=== PATIENT | female | born 1985 | race Caucasian/White ===

== ENCOUNTER 2016-11-21 01:15 | Inpatient (IN) | payer OTHER ==
[2016-11-21 02:28] LABS: Basophils % (Auto) 0.6 % (0.0-1.8); Eosinophils % (Auto) 1.4 % (0.0-4.3); Hematocrit 35.8 % (30.3-42.9); Hemoglobin 12.3 gm/dl (10.1-14.3); Mean Corpuscular HGB Conc 34 % (30-34); Mean Corpuscular Hemoglobin 32 pg (28-32); Mean Corpuscular Volume 93 fl (79-97); Platelet Count 190 K/mm3 (140-440); Red Blood Count 3.85 M/mm3 (3.65-5.03); Red Cell Distribution Width 13.7 % (13.2-15.2)
[2016-11-21] MEDS ORDERED: XYLOCAINE 2% INFILTRATI ONE (02:56)
[2016-11-21] MEDS ORDERED: BRETHINE IVP PRN ×2 (02:56→06:19)
[2016-11-21] MEDS ORDERED: ePHEDrine SULFATE IV PRN ×2 (02:56→06:19)
[2016-11-21] MEDS ORDERED: BRETHINE SUB-Q PRN ×2 (02:56→06:19)
[2016-11-21] MEDS ORDERED: MINERAL OIL PO PRN (02:56)
[2016-11-21] MEDS ORDERED: PITOCin/NS 20 UNIT/1000ML DRIP 20 UNITS/1,000 ML BAG IV SCH (03:00)
[2016-11-21] MEDS: LACTATED RINGERS 1,000 ML IV SCH ×2 (03:54→15:05)
--- NOTE | 2016-11-21 06:11 | History and Physical Report ---
History of Present Illness Date of examination: 11/21/16 Date of admission: 11/21/16 03:14 Chief complaint: Ruptured membranes at midnight History of present illness: 31-year-old 001 at 39+1 weeks presents with above complaints and issues, she is a [facility] patient. care has been unremarkable per patient. I do not have records at this time so patient GBS status is unknown She is status post growth scan ~ 2 weeks ago for S<D, 6 lbs. 4 oz. Her prior was in [facility] in 2007. This was performed for arrest of descent and dilation after rupture of membranes. Maximum dilation was ~ 4 cm and she was in labor for 16 hours. Discussed in detail including the risks, discussed low chance of success due to her prior history. 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 denies: smoking, alcohol abuse, prescription drug abuse, IV drug use - Obstetrical History Expected Date of Delivery: 11/27/16 Actual Gestation: 39 Week(s) 1 Day(s) : 2 Para: 1 Number of Living Children: 1 Medications and Allergies Allergies Allergy/AdvReac Type Severity Reaction Status Date / Time No Known Allergies Allergy Verified 11/21/16 02:59 Active Meds: Active Medications Lactated Ringer's (Lactated Ringers) 1,000 mls @ 125 mls/hr IV DIRECT ALKA Last Admin: 11/21/16 03:54 Dose: 125 mls/hr Oxytocin/Sodium Chloride (Pitocin/Ns 20 Unit/1000ml Drip) 20 units in 1,000 mls @ 125 mls/hr IV DIRECT ALKA Mineral Oil (Mineral Oil) 30 ml PO QHS PRN PRN Reason: Constipation Review of Systems Constitutional: no fever, no chills, no sweats Cardiovascular: no chest pain, no palpitations, no lightheadedness Respiratory: no cough, no shortness of breath, no dyspnea on exertion Gastrointestinal: no abdominal pain, no nausea, no vomiting Genitourinary: leakage of fluid, no vaginal bleeding, no vaginal discharge - Vital Signs Vital signs: Vital Signs Pulse Pulse Ox 307 H 82 L 11/21/16 01:37 11/21/16 01:37 Temp Pulse Resp BP Pulse Ox 98.0 F 80 18 99/55 99 11/21/16 01:40 11/21/16 06:03 11/21/16 01:40 11/21/16 03:32 11/21/16 06:03 - Physical Exam Cardiovascular: Regular rate, Normal S1, Normal S2 Lungs: Positive: Clear to auscultation, Normal air movement Abdomen: Positive: normal appearance, soft. Negative: distention, tenderness, guarding, rigidity Genitourinary (Female): Positive: normal external genitalia Uterus: Positive: enlarged (EFW ~ 3200). Negative: tender Extremities: Positive: normal - Obstetrical FHR: category 1 Cervical Dilatation: 1 (per RN exam) station: -3 Results Result Diagrams: 11/21/16 02:00 All other labs normal. Assessment and Plan A: 31-year-old 001 at 39+1 weeks presented with rupture of membranes -She is status post prior desires TOLAC -Category 1 tracing P: -Admit -Routine labs -Start GBS prophylaxis -Start Low dose Pit -Patient and her partner have been consented for - Patient Problems (1) 39 weeks gestation of Current Visit: Yes Status: Acute (2) Spontaneous rupture of amniotic membranes Current Visit: Yes Status: Acute (3) Previous delivery affecting Current Visit: Yes Status: Acute (4) Desires (vaginal after ) trial Current Visit: Yes Status: Acute
[2016-11-21] MEDS ORDERED: POLYCILLIN/NS 2 GM/100 ML 2 GM/100 ML BAG IV ONE (06:19)
[2016-11-21] MEDS ORDERED: ZOFRAN IV PRN (06:19)
[2016-11-21] MEDS ORDERED: PITOCin/NS 30 UNIT/500ML 30 UNITS/500 ML BAG IV SCH (07:00)
[2016-11-21] MEDS: PITOCin/NS 30 UNIT/500ML 30 UNITS/500 ML BAG IV SCH ×5 (07:36→17:43)
--- NOTE | 2016-11-21 10:14 | Ultrasound Report ---
Gestation: Single Position: Cephalic Heart Rate: 129 BPM Average gestational age 39 weeks and one day.
[2016-11-21] MEDS: POLYCILLIN/NS 1 GM/50 ML 1 GM/50 ML BAG IV SCH ×3 (15:06→23:00)
[2016-11-22] MEDS: LACTATED RINGERS 1,000 ML IV SCH ×3 (01:29→09:27)
[2016-11-22] MEDS: SUBLIMAZE IV PRN ×2 (01:30→04:29)
[2016-11-22] MEDS: POLYCILLIN/NS 1 GM/50 ML 1 GM/50 ML BAG IV SCH ×3 (03:00→11:24)
--- NOTE | 2016-11-22 07:00 | Progress Note ---
Assessment and Plan A: 31-year-old 001 at 39+1 weeks presented with rupture of membranes -She is status post prior desires TOLAC -Category 1 tracing P: -IUPC placed -Epidural now -Continue present care - Patient Problems (1) 39 weeks gestation of Current Visit: Yes Status: Acute (2) Spontaneous rupture of amniotic membranes Current Visit: Yes Status: Acute (3) Previous delivery affecting Current Visit: Yes Status: Acute (4) Desires (vaginal after ) trial Current Visit: Yes Status: Acute Subjective - Subjective Date of service: 11/22/16 Interval history: patient is Patient reports: vaginal bleeding (bloody show), movement normal, contractions, no new complaints Objective - Vital Signs Vital Signs: Vital Signs - 12hr 11/21/16 11/21/16 11/21/16 19:00 19:05 19:06 Temperature Pulse Rate 68 71 62 Pulse Rate [ From Monitor] Respiratory Rate Blood Pressure 102/68 Blood Pressure [Left Arm] O2 Sat by Pulse 99 100 Oximetry 11/21/16 11/21/16 11/21/16 19:07 19:10 19:15 Temperature 98.2 F Pulse Rate 69 71 Pulse Rate [ 71 From Monitor] Respiratory 18 Rate Blood Pressure Blood Pressure 102/68 [Left Arm] O2 Sat by Pulse 100 100 99 Oximetry 11/21/16 11/21/16 11/21/16 19:20 19:28 19:29 Temperature Pulse Rate 62 66 77 Pulse Rate [ From Monitor] Respiratory Rate Blood Pressure 104/70 Blood Pressure [Left Arm] O2 Sat by Pulse 100 100 Oximetry 11/21/16 11/21/16 11/21/16 19:33 19:38 19:43 Temperature Pulse Rate 71 71 68 Pulse Rate [ From Monitor] Respiratory Rate Blood Pressure Blood Pressure [Left Arm] O2 Sat by Pulse 99 98 97 Oximetry 11/21/16 11/21/16 11/21/16 19:47 19:48 19:53 Temperature Pulse Rate 62 75 74 Pulse Rate [ From Monitor] Respiratory Rate Blood Pressure 102/60 Blood Pressure [Left Arm] O2 Sat by Pulse 98 98 Oximetry 11/21/16 11/21/16 11/21/16 19:58 20:03 20:06 Temperature Pulse Rate 66 74 62 Pulse Rate [ From Monitor] Respiratory Rate Blood Pressure 101/69 Blood Pressure [Left Arm] O2 Sat by Pulse 98 97 Oximetry 11/21/16 11/21/16 11/21/16 20:08 20:15 20:20 Temperature Pulse Rate 63 78 74 Pulse Rate [ From Monitor] Respiratory Rate Blood Pressure Blood Pressure [Left Arm] O2 Sat by Pulse 97 97 98 Oximetry 11/21/16 11/21/16 11/21/16 20:25 20:27 20:30 Temperature Pulse Rate 71 75 77 Pulse Rate [ From Monitor] Respiratory Rate Blood Pressure 114/75 Blood Pressure [Left Arm] O2 Sat by Pulse 98 98 Oximetry 11/21/16 11/21/16 11/21/16 20:35 20:40 20:47 Temperature Pulse Rate 65 82 74 Pulse Rate [ From Monitor] Respiratory Rate Blood Pressure Blood Pressure [Left Arm] O2 Sat by Pulse 97 97 99 Oximetry 11/21/16 11/21/16 11/21/16 20:52 20:57 21:02 Temperature Pulse Rate 81 70 64 Pulse Rate [ From Monitor] Respiratory Rate Blood Pressure Blood Pressure [Left Arm] O2 Sat by Pulse 98 98 99 Oximetry 11/21/16 11/21/16 11/21/16 21:07 21:12 21:17 Temperature Pulse Rate 63 72 57 L Pulse Rate [ From Monitor] Respiratory Rate Blood Pressure 106/67 Blood Pressure [Left Arm] O2 Sat by Pulse 98 98 99 Oximetry 11/21/16 11/21/16 11/21/16 21:22 21:26 21:27 Temperature Pulse Rate 63 68 62 Pulse Rate [ From Monitor] Respiratory Rate Blood Pressure 121/81 Blood Pressure [Left Arm] O2 Sat by Pulse 99 99 Oximetry 11/21/16 11/21/16 11/21/16 21:32 21:37 21:43 Temperature Pulse Rate 63 69 74 Pulse Rate [ From Monitor] Respiratory Rate Blood Pressure Blood Pressure [Left Arm] O2 Sat by Pulse 100 99 100 Oximetry 11/21/16 11/21/16 11/21/16 21:48 21:53 21:58 Temperature Pulse Rate 72 78 70 Pulse Rate [ From Monitor] Respiratory Rate Blood Pressure Blood Pressure [Left Arm] O2 Sat by Pulse 100 100 100 Oximetry 11/21/16 11/21/16 11/21/16 22:00 22:03 22:07 Temperature Pulse Rate 71 67 69 Pulse Rate [ From Monitor] Respiratory Rate Blood Pressure 120/76 102/64 Blood Pressure [Left Arm] O2 Sat by Pulse 100 Oximetry 11/21/16 11/21/16 11/21/16 22:08 22:22 22:27 Temperature Pulse Rate 68 68 68 Pulse Rate [ From Monitor] Respiratory Rate Blood Pressure 114/72 Blood Pressure [Left Arm] O2 Sat by Pulse 100 98 98 Oximetry 11/21/16 11/21/16 11/21/16 22:32 22:37 22:45 Temperature Pulse Rate 75 74 77 Pulse Rate [ From Monitor] Respiratory Rate Blood Pressure Blood Pressure [Left Arm] O2 Sat by Pulse 99 100 100 Oximetry 11/21/16 11/21/16 11/21/16 22:47 22:50 22:55 Temperature Pulse Rate 71 76 75 Pulse Rate [ From Monitor] Respiratory Rate Blood Pressure 115/72 Blood Pressure [Left Arm] O2 Sat by Pulse 100 99 Oximetry 11/21/16 11/21/16 11/21/16 23:00 23:05 23:14 Temperature Pulse Rate 63 70 59 L Pulse Rate [ From Monitor] Respiratory Rate Blood Pressure Blood Pressure [Left Arm] O2 Sat by Pulse 100 100 98 Oximetry 11/21/16 11/21/16 11/21/16 23:19 23:24 23:27 Temperature Pulse Rate 66 72 72 Pulse Rate [ From Monitor] Respiratory Rate Blood Pressure 121/85 Blood Pressure [Left Arm] O2 Sat by Pulse 99 99 Oximetry 11/21/16 11/21/16 11/21/16 23:29 23:34 23:39 Temperature Pulse Rate 72 75 61 Pulse Rate [ From Monitor] Respiratory Rate Blood Pressure Blood Pressure [Left Arm] O2 Sat by Pulse 99 99 98 Oximetry 11/21/16 11/21/16 11/21/16 23:44 23:53 23:58 Temperature Pulse Rate 80 68 71 Pulse Rate [ From Monitor] Respiratory Rate Blood Pressure Blood Pressure [Left Arm] O2 Sat by Pulse 98 99 99 Oximetry 11/22/16 11/22/16 11/22/16 00:03 00:07 00:08 Temperature Pulse Rate 67 67 67 Pulse Rate [ From Monitor] Respiratory Rate Blood Pressure 104/60 Blood Pressure [Left Arm] O2 Sat by Pulse 99 98 Oximetry 11/22/16 11/22/16 11/22/16 00:13 00:18 00:23 Temperature Pulse Rate 68 75 72 Pulse Rate [ From Monitor] Respiratory Rate Blood Pressure Blood Pressure [Left Arm] O2 Sat by Pulse 99 100 100 Oximetry 11/22/16 11/22/16 11/22/16 00:27 00:28 00:36 Temperature Pulse Rate 68 65 69 Pulse Rate [ From Monitor] Respiratory Rate Blood Pressure 124/79 Blood Pressure [Left Arm] O2 Sat by Pulse 98 99 Oximetry 11/22/16 11/22/16 11/22/16 00:41 00:46 00:51 Temperature Pulse Rate 66 71 61 Pulse Rate [ From Monitor] Respiratory Rate Blood Pressure 117/75 Blood Pressure [Left Arm] O2 Sat by Pulse 99 99 99 Oximetry 11/22/16 11/22/16 11/22/16 00:56 01:01 01:06 Temperature Pulse Rate 67 73 61 Pulse Rate [ From Monitor] Respiratory Rate Blood Pressure Blood Pressure [Left Arm] O2 Sat by Pulse 98 99 98 Oximetry 11/22/16 11/22/16 11/22/16 01:15 01:20 01:25 Temperature Pulse Rate 74 75 71 Pulse Rate [ From Monitor] Respiratory Rate Blood Pressure Blood Pressure [Left Arm] O2 Sat by Pulse 98 99 97 Oximetry 11/22/16 11/22/16 11/22/16 01:26 01:30 01:35 Temperature Pulse Rate 72 78 74 Pulse Rate [ From Monitor] Respiratory 18 Rate Blood Pressure 120/74 Blood Pressure [Left Arm] O2 Sat by Pulse 99 99 Oximetry 11/22/16 11/22/16 11/22/16 01:40 01:43 01:45 Temperature Pulse Rate 70 70 72 Pulse Rate [ From Monitor] Respiratory Rate Blood Pressure Blood Pressure [Left Arm] O2 Sat by Pulse 97 94 97 Oximetry 11/22/16 11/22/16 11/22/16 01:49 01:50 01:51 Temperature 98.6 F Pulse Rate 71 71 Pulse Rate [ From Monitor] Respiratory Rate Blood Pressure 93/51 Blood Pressure [Left Arm] O2 Sat by Pulse 96 Oximetry 11/22/16 11/22/16 11/22/16 01:55 02:00 02:05 Temperature Pulse Rate 71 69 70 Pulse Rate [ From Monitor] Respiratory Rate Blood Pressure Blood Pressure [Left Arm] O2 Sat by Pulse 97 97 97 Oximetry 11/22/16 11/22/16 11/22/16 02:08 02:10 02:15 Temperature Pulse Rate 70 69 67 Pulse Rate [ From Monitor] Respiratory Rate Blood Pressure 81/53 Blood Pressure [Left Arm] O2 Sat by Pulse 97 97 Oximetry 11/22/16 11/22/16 11/22/16 02:20 02:28 02:33 Temperature Pulse Rate 63 76 63 Pulse Rate [ From Monitor] Respiratory Rate Blood Pressure Blood Pressure [Left Arm] O2 Sat by Pulse 98 97 99 Oximetry 11/22/16 11/22/16 11/22/16 02:38 02:43 02:47 Temperature Pulse Rate 71 66 67 Pulse Rate [ From Monitor] Respiratory Rate Blood Pressure 110/61 Blood Pressure [Left Arm] O2 Sat by Pulse 98 97 Oximetry 11/22/16 11/22/16 11/22/16 02:48 02:53 02:58 Temperature Pulse Rate 66 64 67 Pulse Rate [ From Monitor] Respiratory Rate Blood Pressure Blood Pressure [Left Arm] O2 Sat by Pulse 98 98 97 Oximetry 11/22/16 11/22/16 11/22/16 03:03 03:12 03:17 Temperature Pulse Rate 78 66 65 Pulse Rate [ From Monitor] Respiratory Rate Blood Pressure Blood Pressure [Left Arm] O2 Sat by Pulse 99 99 97 Oximetry 11/22/16 11/22/16 11/22/16 03:22 03:26 03:27 Temperature Pulse Rate 73 70 73 Pulse Rate [ From Monitor] Respiratory Rate Blood Pressure 96/59 Blood Pressure [Left Arm] O2 Sat by Pulse 100 98 Oximetry 11/22/16 11/22/16 11/22/16 03:32 03:37 03:42 Temperature Pulse Rate 71 70 77 Pulse Rate [ From Monitor] Respiratory Rate Blood Pressure Blood Pressure [Left Arm] O2 Sat by Pulse 98 98 99 Oximetry 11/22/16 11/22/16 11/22/16 03:47 03:52 04:27 Temperature Pulse Rate 73 73 74 Pulse Rate [ From Monitor] Respiratory Rate Blood Pressure 130/74 103/65 Blood Pressure [Left Arm] O2 Sat by Pulse 99 99 Oximetry 11/22/16 11/22/16 11/22/16 04:29 04:30 04:34 Temperature 98.5 F Pulse Rate 64 78 Pulse Rate [ 78 From Monitor] Respiratory 18 18 Rate Blood Pressure Blood Pressure [Left Arm] O2 Sat by Pulse 96 98 98 Oximetry 0311/22/16 11/22/16 04:39 04:44 04:47 Temperature Pulse Rate 67 67 70 Pulse Rate [ From Monitor] Respiratory Rate Blood Pressure 82/48 Blood Pressure [Left Arm] O2 Sat by Pulse 97 97 Oximetry 11/22/16 11/22/16 11/22/16 04:49 04:54 04:59 Temperature Pulse Rate 71 71 63 Pulse Rate [ From Monitor] Respiratory Rate Blood Pressure Blood Pressure [Left Arm] O2 Sat by Pulse 98 97 98 Oximetry 11/22/16 11/22/16 11/22/16 05:04 05:07 05:09 Temperature Pulse Rate 89 66 71 Pulse Rate [ From Monitor] Respiratory Rate Blood Pressure 112/64 Blood Pressure [Left Arm] O2 Sat by Pulse 97 97 Oximetry 11/22/16 11/22/16 11/22/16 05:14 05:19 05:24 Temperature Pulse Rate 65 66 73 Pulse Rate [ From Monitor] Respiratory Rate Blood Pressure Blood Pressure [Left Arm] O2 Sat by Pulse 96 99 98 Oximetry 11/22/16 11/22/16 11/22/16 05:28 05:29 05:34 Temperature Pulse Rate 68 73 77 Pulse Rate [ From Monitor] Respiratory Rate Blood Pressure 112/67 Blood Pressure [Left Arm] O2 Sat by Pulse 98 97 Oximetry 11/22/16 11/22/16 11/22/16 05:42 05:46 05:47 Temperature Pulse Rate 72 68 68 Pulse Rate [ From Monitor] Respiratory Rate Blood Pressure 90/55 Blood Pressure [Left Arm] O2 Sat by Pulse 99 99 Oximetry 11/22/16 11/22/16 11/22/16 05:52 05:56 05:57 Temperature 98.0 F Pulse Rate 76 76 Pulse Rate [ 70 From Monitor] Respiratory 18 Rate Blood Pressure Blood Pressure 90/55 [Left Arm] O2 Sat by Pulse 99 98 98 Oximetry 11/22/16 11/22/16 11/22/16 06:15 06:20 06:25 Temperature Pulse Rate 73 68 74 Pulse Rate [ From Monitor] Respiratory Rate Blood Pressure Blood Pressure [Left Arm] O2 Sat by Pulse 97 98 98 Oximetry 11/22/16 11/22/16 11/22/16 06:26 06:30 06:31 Temperature Pulse Rate 74 71 79 Pulse Rate [ From Monitor] Respiratory Rate Blood Pressure Blood Pressure [Left Arm] O2 Sat by Pulse 84 95 94 Oximetry 11/22/16 11/22/16 11/22/16 06:36 06:41 06:45 Temperature Pulse Rate 84 79 80 Pulse Rate [ From Monitor] Respiratory Rate Blood Pressure Blood Pressure [Left Arm] O2 Sat by Pulse 96 98 89 Oximetry 11/22/16 11/22/16 11/22/16 06:46 06:47 06:51 Temperature Pulse Rate 75 73 68 Pulse Rate [ From Monitor] Respiratory Rate Blood Pressure 109/56 Blood Pressure [Left Arm] O2 Sat by Pulse 99 100 Oximetry - Exam FHR: category 1 Cervical Dilatation: 5 Cervical Effacement Percentage: 90 station: -1
[2016-11-22] MEDS ORDERED: ePHEDrine SULFATE ONE (07:24)
[2016-11-22] MEDS ORDERED: fentaNYL-BUPIV 2 MCG/ML-0.125% 200 MCG/100 ML BAG EPIDURAL ONE (07:30)
--- NOTE | 2016-11-22 08:36 | Anesthesia Consultation ---
Anesthesia Consult and Med Hx Date of service: 11/22/16 - Airway Anesthetic Teeth Evaluation: Good ROM Head & Neck: Adequate Mental/Hyoid Distance: Adequate Mallampati Class: Class II Intubation Access Assessment: Probably Good - Pre-Operative Health Status ASA Pre-Surgery Classification: ASA2 Proposed Anesthetic Plan: Epidural, Spinal - Pulmonary Hx Asthma: No - Cardiovascular System Hx Hypertension: No - Central Nervous System Hx Seizures: No Hx Psychiatric Problems: No - Endocrine Hx Renal Disease: No Hx Hypothyroidism: No Hx Hyperthyroidism: No - Hematic Hx Anemia: No Hx Sickle Cell Disease: No - Other Systems Hx Alcohol Use: No
[2016-11-22] MEDS ORDERED: fentaNYL-BUPIV 2 MCG/ML-0.125% 200 MCG/100 ML BAG EPIDURAL SCH (09:00)
[2016-11-22] MEDS ORDERED: ePHEDrine SULFATE IV PRN (09:30)
[2016-11-22] MEDS ORDERED: NARCAN 2 MG/2 ML IV PRN (10:00)
--- NOTE | 2016-11-22 10:32 | Progress Note ---
Assessment and Plan - Patient Problems (1) 39 weeks gestation of Onset Date: 11/22/16 Current Visit: Yes Status: Acute Plan to address problem: A: IUP @ 39 1/7 weeks in labor Previous C Section - pt desires TOLAC P: Continue with pitocin augmentation of labor (2) Desires (vaginal after ) trial Onset Date: 11/22/16 Current Visit: Yes Status: Acute (3) Previous delivery affecting Onset Date: 11/22/16 Current Visit: Yes Status: Acute Subjective - Subjective Date of service: 11/22/16 Principal diagnosis: IUP @ 39 1/7 weeks; TOLAC Interval history: Pt is currently on pitocin 14mu/mins and he q 4-6 mins with epidural in place. Patient reports: movement normal, contractions, no new complaints Objective - Vital Signs Vital Signs: Vital Signs - 12hr 11/21/16 11/21/16 11/21/16 22:32 22:37 22:45 Temperature Pulse Rate 75 74 77 Pulse Rate [ From Monitor] Respiratory Rate Blood Pressure Blood Pressure [Left Arm] O2 Sat by Pulse 99 100 100 Oximetry 11/21/16 11/21/16 11/21/16 22:47 22:50 22:55 Temperature Pulse Rate 71 76 75 Pulse Rate [ From Monitor] Respiratory Rate Blood Pressure 115/72 Blood Pressure [Left Arm] O2 Sat by Pulse 100 99 Oximetry 11/21/16 11/21/16 11/21/16 23:00 23:05 23:14 Temperature Pulse Rate 63 70 59 L Pulse Rate [ From Monitor] Respiratory Rate Blood Pressure Blood Pressure [Left Arm] O2 Sat by Pulse 100 100 98 Oximetry 11/21/16 11/21/16 11/21/16 23:19 23:24 23:27 Temperature Pulse Rate 66 72 72 Pulse Rate [ From Monitor] Respiratory Rate Blood Pressure 121/85 Blood Pressure [Left Arm] O2 Sat by Pulse 99 99 Oximetry 11/21/16 11/21/16 11/21/16 23:29 23:34 23:39 Temperature Pulse Rate 72 75 61 Pulse Rate [ From Monitor] Respiratory Rate Blood Pressure Blood Pressure [Left Arm] O2 Sat by Pulse 99 99 98 Oximetry 11/21/16 11/21/16 11/21/16 23:44 23:53 23:58 Temperature Pulse Rate 80 68 71 Pulse Rate [ From Monitor] Respiratory Rate Blood Pressure Blood Pressure [Left Arm] O2 Sat by Pulse 98 99 99 Oximetry 11/22/16 11/22/16 11/22/16 00:03 00:07 00:08 Temperature Pulse Rate 67 67 67 Pulse Rate [ From Monitor] Respiratory Rate Blood Pressure 104/60 Blood Pressure [Left Arm] O2 Sat by Pulse 99 98 Oximetry 11/22/16 11/22/16 11/22/16 00:13 00:18 00:23 Temperature Pulse Rate 68 75 72 Pulse Rate [ From Monitor] Respiratory Rate Blood Pressure Blood Pressure [Left Arm] O2 Sat by Pulse 99 100 100 Oximetry 11/22/16 11/22/16 11/22/16 00:27 00:28 00:36 Temperature Pulse Rate 68 65 69 Pulse Rate [ From Monitor] Respiratory Rate Blood Pressure 124/79 Blood Pressure [Left Arm] O2 Sat by Pulse 98 99 Oximetry 11/22/16 11/22/16 11/22/16 00:41 00:46 00:51 Temperature Pulse Rate 66 71 61 Pulse Rate [ From Monitor] Respiratory Rate Blood Pressure 117/75 Blood Pressure [Left Arm] O2 Sat by Pulse 99 99 99 Oximetry 11/22/16 11/22/16 11/22/16 00:56 01:01 01:06 Temperature Pulse Rate 67 73 61 Pulse Rate [ From Monitor] Respiratory Rate Blood Pressure Blood Pressure [Left Arm] O2 Sat by Pulse 98 99 98 Oximetry 11/22/16 11/22/16 11/22/16 01:15 01:20 01:25 Temperature Pulse Rate 74 75 71 Pulse Rate [ From Monitor] Respiratory Rate Blood Pressure Blood Pressure [Left Arm] O2 Sat by Pulse 98 99 97 Oximetry 11/22/16 11/22/16 11/22/16 01:26 01:30 01:35 Temperature Pulse Rate 72 78 74 Pulse Rate [ From Monitor] Respiratory 18 Rate Blood Pressure 120/74 Blood Pressure [Left Arm] O2 Sat by Pulse 99 99 Oximetry 11/22/16 11/22/16 11/22/16 01:40 01:43 01:45 Temperature Pulse Rate 70 70 72 Pulse Rate [ From Monitor] Respiratory Rate Blood Pressure Blood Pressure [Left Arm] O2 Sat by Pulse 97 94 97 Oximetry 11/22/16 11/22/16 11/22/16 01:49 01:50 01:51 Temperature 98.6 F Pulse Rate 71 71 Pulse Rate [ From Monitor] Respiratory Rate Blood Pressure 93/51 Blood Pressure [Left Arm] O2 Sat by Pulse 96 Oximetry 11/22/16 11/22/16 11/22/16 01:55 02:00 02:05 Temperature Pulse Rate 71 69 70 Pulse Rate [ From Monitor] Respiratory Rate Blood Pressure Blood Pressure [Left Arm] O2 Sat by Pulse 97 97 97 Oximetry 11/22/16 11/22/16 11/22/16 02:08 02:10 02:15 Temperature Pulse Rate 70 69 67 Pulse Rate [ From Monitor] Respiratory Rate Blood Pressure 81/53 Blood Pressure [Left Arm] O2 Sat by Pulse 97 97 Oximetry 11/22/16 11/22/16 11/22/16 02:20 02:28 02:33 Temperature Pulse Rate 63 76 63 Pulse Rate [ From Monitor] Respiratory Rate Blood Pressure Blood Pressure [Left Arm] O2 Sat by Pulse 98 97 99 Oximetry 11/22/16 11/22/16 11/22/16 02:38 02:43 02:47 Temperature Pulse Rate 71 66 67 Pulse Rate [ From Monitor] Respiratory Rate Blood Pressure 110/61 Blood Pressure [Left Arm] O2 Sat by Pulse 98 97 Oximetry 11/22/16 11/22/16 11/22/16 02:48 02:53 02:58 Temperature Pulse Rate 66 64 67 Pulse Rate [ From Monitor] Respiratory Rate Blood Pressure Blood Pressure [Left Arm] O2 Sat by Pulse 98 98 97 Oximetry 11/22/16 11/22/16 11/22/16 03:03 03:12 03:17 Temperature Pulse Rate 78 66 65 Pulse Rate [ From Monitor] Respiratory Rate Blood Pressure Blood Pressure [Left Arm] O2 Sat by Pulse 99 99 97 Oximetry 11/22/16 11/22/16 11/22/16 03:22 03:26 03:27 Temperature Pulse Rate 73 70 73 Pulse Rate [ From Monitor] Respiratory Rate Blood Pressure 96/59 Blood Pressure [Left Arm] O2 Sat by Pulse 100 98 Oximetry 11/22/16 11/22/16 11/22/16 03:32 03:37 03:42 Temperature Pulse Rate 71 70 77 Pulse Rate [ From Monitor] Respiratory Rate Blood Pressure Blood Pressure [Left Arm] O2 Sat by Pulse 98 98 99 Oximetry 11/22/16 11/22/16 11/22/16 03:47 03:52 04:27 Temperature Pulse Rate 73 73 74 Pulse Rate [ From Monitor] Respiratory Rate Blood Pressure 130/74 103/65 Blood Pressure [Left Arm] O2 Sat by Pulse 99 99 Oximetry 11/22/16 11/22/16 11/22/16 04:29 04:30 04:34 Temperature 98.5 F Pulse Rate 64 78 Pulse Rate [ 78 From Monitor] Respiratory 18 18 Rate Blood Pressure Blood Pressure [Left Arm] O2 Sat by Pulse 96 98 98 Oximetry 11/22/16 11/22/16 11/22/16 04:39 04:44 04:47 Temperature Pulse Rate 67 67 70 Pulse Rate [ From Monitor] Respiratory Rate Blood Pressure 82/48 Blood Pressure [Left Arm] O2 Sat by Pulse 97 97 Oximetry 11/22/16 11/22/16 11/22/16 04:49 04:54 04:59 Temperature Pulse Rate 71 71 63 Pulse Rate [ From Monitor] Respiratory Rate Blood Pressure Blood Pressure [Left Arm] O2 Sat by Pulse 98 97 98 Oximetry 11/22/16 11/22/16 11/22/16 05:04 05:07 05:09 Temperature Pulse Rate 89 66 71 Pulse Rate [ From Monitor] Respiratory Rate Blood Pressure 112/64 Blood Pressure [Left Arm] O2 Sat by Pulse 97 97 Oximetry 11/22/16 11/22/16 11/22/16 05:14 05:19 05:24 Temperature Pulse Rate 65 66 73 Pulse Rate [ From Monitor] Respiratory Rate Blood Pressure Blood Pressure [Left Arm] O2 Sat by Pulse 96 99 98 Oximetry 11/22/16 11/22/16 11/22/16 05:28 05:29 05:34 Temperature Pulse Rate 68 73 77 Pulse Rate [ From Monitor] Respiratory Rate Blood Pressure 112/67 Blood Pressure [Left Arm] O2 Sat by Pulse 98 97 Oximetry 11/22/16 11/22/16 11/22/16 05:42 05:46 05:47 Temperature Pulse Rate 72 68 68 Pulse Rate [ From Monitor] Respiratory Rate Blood Pressure 90/55 Blood Pressure [Left Arm] O2 Sat by Pulse 99 99 Oximetry 11/22/16 11/22/16 11/22/16 05:52 05:56 05:57 Temperature 98.0 F Pulse Rate 76 76 Pulse Rate [ 70 From Monitor] Respiratory 18 Rate Blood Pressure Blood Pressure 90/55 [Left Arm] O2 Sat by Pulse 99 98 98 Oximetry 11/22/16 11/22/16 11/22/16 06:15 06:20 06:25 Temperature Pulse Rate 73 68 74 Pulse Rate [ From Monitor] Respiratory Rate Blood Pressure Blood Pressure [Left Arm] O2 Sat by Pulse 97 98 98 Oximetry 11/22/16 11/22/16 11/22/16 06:26 06:30 06:31 Temperature Pulse Rate 74 71 79 Pulse Rate [ From Monitor] Respiratory Rate Blood Pressure Blood Pressure [Left Arm] O2 Sat by Pulse 84 95 94 Oximetry 11/22/16 11/22/16 11/22/16 06:36 06:41 06:45 Temperature Pulse Rate 84 79 80 Pulse Rate [ From Monitor] Respiratory Rate Blood Pressure Blood Pressure [Left Arm] O2 Sat by Pulse 96 98 89 Oximetry 11/22/16 11/22/16 11/22/16 06:46 06:47 06:51 Temperature Pulse Rate 75 73 68 Pulse Rate [ From Monitor] Respiratory Rate Blood Pressure 109/56 Blood Pressure [Left Arm] O2 Sat by Pulse 99 100 Oximetry 11/22/16 11/22/16 11/22/16 06:56 07:01 07:06 Temperature Pulse Rate 80 76 70 Pulse Rate [ From Monitor] Respiratory Rate Blood Pressure Blood Pressure [Left Arm] O2 Sat by Pulse 96 97 100 Oximetry 11/22/16 11/22/16 11/22/16 07:08 07:11 07:16 Temperature Pulse Rate 81 82 76 Pulse Rate [ From Monitor] Respiratory Rate Blood Pressure 119/66 Blood Pressure [Left Arm] O2 Sat by Pulse 100 99 Oximetry 11/22/16 11/22/16 11/22/16 07:17 07:21 07:26 Temperature Pulse Rate 66 74 73 Pulse Rate [ From Monitor] Respiratory Rate Blood Pressure 120/73 Blood Pressure [Left Arm] O2 Sat by Pulse 98 100 Oximetry 11/22/16 11/22/16 11/22/16 07:28 07:33 07:38 Temperature Pulse Rate 85 80 76 Pulse Rate [ From Monitor] Respiratory Rate Blood Pressure 94/52 Blood Pressure [Left Arm] O2 Sat by Pulse 87 97 98 Oximetry 11/22/16 11/22/16 11/22/16 07:39 07:41 07:42 Temperature Pulse Rate 76 74 94 H Pulse Rate [ From Monitor] Respiratory Rate Blood Pressure 104/55 101/57 Blood Pressure [Left Arm] O2 Sat by Pulse 85 Oximetry 11/22/16 11/22/16 11/22/16 07:43 07:44 07:45 Temperature Pulse Rate 95 H 109 H 110 H Pulse Rate [ From Monitor] Respiratory Rate Blood Pressure 97/53 105/55 Blood Pressure [Left Arm] O2 Sat by Pulse 98 Oximetry 11/22/16 11/22/16 11/22/16 07:47 07:49 07:51 Temperature Pulse Rate 93 H 79 81 Pulse Rate [ From Monitor] Respiratory Rate Blood Pressure 101/57 89/53 86/48 Blood Pressure [Left Arm] O2 Sat by Pulse 99 Oximetry 11/22/16 11/22/16 11/22/16 07:53 07:56 08:00 Temperature Pulse Rate 82 81 72 Pulse Rate [ From Monitor] Respiratory Rate Blood Pressure 85/45 101/59 Blood Pressure [Left Arm] O2 Sat by Pulse 99 Oximetry 11/22/16 11/22/16 11/22/16 08:01 08:06 08:10 Temperature Pulse Rate 71 69 68 Pulse Rate [ From Monitor] Respiratory Rate Blood Pressure 94/54 Blood Pressure [Left Arm] O2 Sat by Pulse 99 100 Oximetry 11/22/16 11/22/16 11/22/16 08:11 08:16 08:21 Temperature Pulse Rate 70 71 66 Pulse Rate [ From Monitor] Respiratory Rate Blood Pressure Blood Pressure [Left Arm] O2 Sat by Pulse 100 100 100 Oximetry 11/22/16 11/22/16 11/22/16 08:25 08:26 08:31 Temperature Pulse Rate 86 85 Pulse Rate [ From Monitor] Respiratory 16 Rate Blood Pressure 132/70 Blood Pressure [Left Arm] O2 Sat by Pulse 100 100 Oximetry 11/22/16 11/22/16 11/22/16 08:36 08:41 08:46 Temperature Pulse Rate 79 80 79 Pulse Rate [ From Monitor] Respiratory Rate Blood Pressure 90/55 Blood Pressure [Left Arm] O2 Sat by Pulse 100 100 100 Oximetry 11/22/16 11/22/16 11/22/16 08:51 08:55 08:56 Temperature Pulse Rate 79 84 81 Pulse Rate [ From Monitor] Respiratory Rate Blood Pressure 77/58 Blood Pressure [Left Arm] O2 Sat by Pulse 100 100 Oximetry 11/22/16 11/22/16 11/22/16 09:01 09:06 09:11 Temperature Pulse Rate 76 77 86 Pulse Rate [ From Monitor] Respiratory Rate Blood Pressure 101/57 Blood Pressure [Left Arm] O2 Sat by Pulse 100 100 100 Oximetry 11/22/16 11/22/16 11/22/16 09:16 09:21 09:26 Temperature Pulse Rate 82 85 73 Pulse Rate [ From Monitor] Respiratory Rate Blood Pressure 106/55 Blood Pressure [Left Arm] O2 Sat by Pulse 100 100 100 Oximetry 11/22/16 11/22/16 11/22/16 09:30 09:31 09:36 Temperature 97.8 F Pulse Rate 76 75 Pulse Rate [ From Monitor] Respiratory 16 Rate Blood Pressure Blood Pressure [Left Arm] O2 Sat by Pulse 98 100 100 Oximetry 11/22/16 11/22/16 11/22/16 09:40 09:41 09:46 Temperature Pulse Rate 74 75 76 Pulse Rate [ From Monitor] Respiratory Rate Blood Pressure 94/50 Blood Pressure [Left Arm] O2 Sat by Pulse 100 100 Oximetry 11/22/16 11/22/16 11/22/16 09:51 09:56 09:57 Temperature Pulse Rate 73 73 73 Pulse Rate [ From Monitor] Respiratory Rate Blood Pressure 98/52 Blood Pressure [Left Arm] O2 Sat by Pulse 100 100 Oximetry 11/22/16 11/22/16 11/22/16 10:01 10:06 10:10 Temperature Pulse Rate 75 73 74 Pulse Rate [ From Monitor] Respiratory Rate Blood Pressure 92/55 Blood Pressure [Left Arm] O2 Sat by Pulse 100 100 Oximetry 11/22/16 11/22/16 11/22/16 10:11 10:16 10:21 Temperature Pulse Rate 74 77 91 H Pulse Rate [ From Monitor] Respiratory Rate Blood Pressure Blood Pressure [Left Arm] O2 Sat by Pulse 100 100 100 Oximetry - Exam Abdomen: Present: normal appearance, soft Uterus: Present: normal FHR: category 2 Uterine Contraction Monitor Mode: Internal Cervical Dilatation: 5 Cervical Effacement Percentage: 70 station: -1 Uterine Contraction Pattern: Regular Uterine Tone Measurement Phase: Contraction Uterine Contraction Intensity: Moderate
[2016-11-22] MEDS ORDERED: BICITRA ONE (11:18)
[2016-11-22] MEDS ORDERED: REGLAN ONE (11:18)
[2016-11-22] MEDS ORDERED: PEPCID IV ONE (11:19)
[2016-11-22] MEDS ORDERED: TORADOL IV PRN (14:00)
[2016-11-22] MEDS ORDERED: MORPHINE IV PRN ×2 (14:01)
[2016-11-22] MEDS ORDERED: WATER FOR IRRIG STERILE IR ONE (14:06)
[2016-11-22] MEDS ORDERED: NACL 0.9% IR ONE (14:06)
[2016-11-22] MEDS ORDERED: XYLOCAINE MPF 2% ONE (14:11)
[2016-11-22] MEDS ORDERED: MORPHINE ONE (14:15)
[2016-11-22] MEDS ORDERED: LANSINOH TP PRN (14:42)
[2016-11-22] MEDS ORDERED: NORCO 5/325 PO PRN (14:42)
[2016-11-22] MEDS ORDERED: MYLICON PO PRN (14:42)
[2016-11-22] MEDS ORDERED: NARCAN 0.4 MG/1 ML IV PRN (14:42)
[2016-11-22] MEDS ORDERED: SENOKOT PO PRN (14:42)
[2016-11-22] MEDS ORDERED: MILK OF MAGNESIA PO PRN (14:42)
[2016-11-22] MEDS ORDERED: PHENERGAN PR PRN (14:42)
[2016-11-22] MEDS ORDERED: TUCKS PAD TP PRN (14:42)
[2016-11-22] MEDS ORDERED: PERCOCET 5/325 PO PRN (14:42)
[2016-11-22] MEDS ORDERED: TYLENOL PO PRN (14:42)
--- NOTE | 2016-11-22 14:52 | Operative Report ---
Operative Report Operative Report: Date of procedure: 11/22/2016 Pre-operative diagnosis: 1. Intrauterine at 39-1/7 weeks in labor 2. Previous section 3. Nonreassuring surveillance Post-operative diagnosis: Same with abruptio placenta Procedure name(s): Repeat low transverse section Surgeon: Guilherme Martínez MD [employer] Supervisor Dimension Stone: None Anesthesia: Epidural anesthesia by Dr. Lan EBL: 500 mL's Findings: A 3455 g male Apgars 8 at 1 minute 9 at 5 minutes. Normal uterus. Normal tubes and ovaries bilaterally. Evidence of abruptio placenta. Procedure: After the patient was prepped and draped in usual sterile fashion, and after satisfactory level of epidural anesthesia was obtained, the skin knife was used to make a transverse skin incision through the previous skin scar. The incision was excised down to layer of the fascia, which was nicked in the midline and extended laterally using the Bovie cautery. The rectus muscles were dissected off the rectus fascia both superiorly and inferiorly. The rectus bellies in the midline, and the peritoneum was entered under direct visualization. The peritoneal incision was extended superiorly and inferiorly. A bladder flap was created and the bladder blade was then placed. The uterus was scored in a curvilinear linear fashion, entered in the midline revealing bloody amniotic fluid. The infant's head was delivered onto the surgical field, and the oropharynx and nasopharynx were bulb suctioned. The rest of the infant's body was delivered, cord was doubly clamped and cut and the infant was handed to the waiting respiratory team. Cord blood was then obtained. The placenta and blood clots were manually removed from the uterus, and the uterus removed from its normal anatomical position. After gentle uterine lavage, the incision was inspected and found to be without extensions. It was then closed in 2 layers using 0 Vicryl suture in a running interlocking fashion, the second layer imbricating the first. After good hemostasis was achieved, copious amounts or irrigation was performed, and the gutters were suctioned free of blood and blood clots. The Tisseel sealant was sprayed across the uterine incision. The uterus was then returned to its normal anatomical position, and after excellent hemostasis assured, the peritoneum was reapproximated using 3-0 Vicryl suture in a running interlocking fashion, and then the rectus muscles were reapproximated using 3-0 Vicryl suture in a figure- of-eight configuration. The fascia was then reapproximated using 0 Vicryl suture in running interlocking fashion. The subcutaneous layer was made hemostatic using Bovie cautery, the Tisseel sealant was sprayed across the fascial incision and the skin edges reapproximated using 4-0 Vicryl suture in a subcuticular fashion. Patient tolerated the procedure well was transported to recovery in stable condition.
[2016-11-22] MEDS ORDERED: DEMEROL IV PRN (14:58)
[2016-11-22] MEDS ORDERED: SODIUM CHLORIDE FLUSH SYRINGE 10 ML IV SCH (15:00)
[2016-11-22] MEDS ORDERED: PITOCin/NS 20 UNIT/1000ML DRIP 20 UNITS/1,000 ML BAG IV SCH (15:00)
[2016-11-22] MEDS ORDERED: D5LR 1,000 ML IV SCH (15:00)
--- NOTE | 2016-11-22 15:14 | Post Anesthesia Evaluation ---
- Post Anesthesia Evaluation Patient Participated: Yes Airway Patent: Yes Stable Respiratory Function: Yes Nausea/Vomiting: No Temp > 96.8F: Yes Pain Manageable: Yes Adequeate Hydration: Yes Anesthesia Complications: No Block Receding Appropriately: Yes Patient on Ventilator: No
[2016-11-22] MEDS: ANCEF/NS 1 GM/50 ML 1 GM/50 ML BAG IV SCH (22:36)
[2016-11-23 03:58] LABS: Hematocrit 31.5 % (30.3-42.9); Hemoglobin 10.4 gm/dl (10.1-14.3)
[2016-11-23] MEDS ORDERED: BOOSTRIX IM ONE (06:00)
[2016-11-23] MEDS: ANCEF/NS 1 GM/50 ML 1 GM/50 ML BAG IV SCH (06:25)
[2016-11-23] MEDS ORDERED: ANCEF/NS 1 GM/50 ML 1 GM/50 ML BAG IV SCH (07:00)
--- NOTE | 2016-11-23 08:22 | Progress Note ---
Assessment and Plan - Patient Problems (1) 39 weeks gestation of Onset Date: 11/22/16 Current Visit: Yes Status: Resolved (2) Desires (vaginal after ) trial Onset Date: 11/22/16 Current Visit: Yes Status: Resolved (3) Previous delivery affecting Onset Date: 11/22/16 Current Visit: Yes Status: Resolved (4) Status post repeat low transverse section Onset Date: 11/23/16 Current Visit: Yes Status: Resolved Plan to address problem: A: S/P Repeat C Section - POD #1 Doing well P: Continue RPOC Anticipate discharge in 24-48hrs Subjective - Subjective Date of service: 11/23/16 Principal diagnosis: s/p Repeat C Section - POD #1 Interval history: Pt is feeling well without complaints, tolerating a reg diet without nausea or vomiting. Bleeding improved. Patient reports: appetite normal, voiding normally, pain well controlled, flatus [place]: doing well, nursing well Objective - Vital Signs Latest vital signs: Vital Signs Temp Pulse Pulse Pulse Resp BP BP 11/23/16 05:00 98.7 F 77 20 11/23/16 02:07 18 11/23/16 01:25 98.8 F 75 20 11/22/16 21:15 98.5 F 72 20 11/22/16 16:20 98.9 F 76 20 11/22/16 15:50 83 20 125/76 11/22/16 15:35 80 20 120/74 11/22/16 15:21 92 H 16 117/55 11/22/16 15:06 85 14 125/72 11/22/16 15:01 87 14 118/62 11/22/16 14:56 92 H 15 117/45 11/22/16 14:51 97.6 F 89 15 108/59 11/22/16 14:21 16 11/22/16 13:40 83 104/57 11/22/16 13:36 88 11/22/16 13:32 99.9 F H 102 H 18 96/55 11/22/16 13:31 88 11/22/16 13:26 86 11/22/16 13:25 85 96/55 11/22/16 13:21 88 11/22/16 13:16 85 11/22/16 13:11 88 92/51 11/22/16 13:06 88 11/22/16 13:01 95 H 11/22/16 12:56 87 11/22/16 12:55 89 99/55 11/22/16 12:51 82 11/22/16 12:46 82 11/22/16 12:41 81 11/22/16 12:40 86 97/63 11/22/16 12:36 94 H 11/22/16 12:31 86 11/22/16 12:26 81 11/22/16 12:25 83 97/64 11/22/16 12:21 81 11/22/16 12:16 83 11/22/16 12:11 82 11/22/16 12:10 87 96/64 11/22/16 12:06 81 11/22/16 12:01 86 11/22/16 11:56 89 11/22/16 11:55 90 94/59 11/22/16 11:51 92 H 11/22/16 11:46 89 11/22/16 11:41 93 H 11/22/16 11:40 87 88/60 11/22/16 11:36 87 11/22/16 11:31 81 11/22/16 11:27 77 96/62 11/22/16 11:26 77 11/22/16 11:21 75 11/22/16 11:16 77 11/22/16 11:11 76 11/22/16 11:10 75 92/58 11/22/16 11:06 76 11/22/16 11:01 76 11/22/16 10:56 75 96/62 11/22/16 10:51 74 11/22/16 10:46 75 11/22/16 10:41 74 11/22/16 10:40 72 96/59 11/22/16 10:36 74 11/22/16 10:31 75 11/22/16 10:26 80 102/63 11/22/16 10:21 91 H 11/22/16 10:16 77 11/22/16 10:11 74 11/22/16 10:10 74 92/55 11/22/16 10:06 73 11/22/16 10:01 75 11/22/16 09:57 73 98/52 11/22/16 09:56 73 11/22/16 09:51 73 11/22/16 09:46 76 03/24/17 09:41 75 11/22/16 09:40 74 94/50 11/22/16 09:36 75 11/22/16 09:31 76 11/22/16 09:30 97.8 F 16 11/22/16 09:26 73 106/55 11/22/16 09:21 85 11/22/16 09:16 82 11/22/16 09:11 86 101/57 11/22/16 09:06 77 11/22/16 09:01 76 11/22/16 08:56 81 11/22/16 08:55 84 77/58 11/22/16 08:51 79 11/22/16 08:46 79 11/22/16 08:41 80 90/55 11/22/16 08:36 79 11/22/16 08:31 85 11/22/16 08:26 86 132/70 11/22/16 08:25 16 BP Pulse Ox 11/23/16 05:00 96/52 11/23/16 02:07 11/23/16 01:25 104/71 11/22/16 21:15 107/73 11/22/16 16:20 108/50 11/22/16 15:50 98 11/22/16 15:35 98 11/22/16 15:21 11/22/16 15:06 11/22/16 15:01 11/22/16 14:56 11/22/16 14:51 98 11/22/16 14:21 11/22/16 13:40 11/22/16 13:36 96 11/22/16 13:32 96 11/22/16 13:31 96 11/22/16 13:26 96 11/22/16 13:25 11/22/16 13:21 96 11/22/16 13:16 96 11/22/16 13:11 96 11/22/16 13:06 96 11/22/16 13:01 97 11/22/16 12:56 98 11/22/16 12:55 11/22/16 12:51 99 11/22/16 12:46 98 11/22/16 12:41 99 11/22/16 12:40 11/22/16 12:36 98 11/22/16 12:31 99 11/22/16 12:26 98 11/22/16 12:25 11/22/16 12:21 98 11/22/16 12:16 99 11/22/16 12:11 99 11/22/16 12:10 11/22/16 12:06 99 11/22/16 12:01 99 11/22/16 11:56 99 11/22/16 11:55 11/22/16 11:51 99 11/22/16 11:46 99 11/22/16 11:41 98 11/22/16 11:40 11/22/16 11:36 99 11/22/16 11:31 98 11/22/16 11:27 11/22/16 11:26 98 11/22/16 11:21 99 11/22/16 11:16 99 11/22/16 11:11 99 11/22/16 11:10 11/22/16 11:06 99 11/22/16 11:01 99 11/22/16 10:56 100 11/22/16 10:51 100 11/22/16 10:46 99 11/22/16 10:41 100 11/22/16 10:40 11/22/16 10:36 99 11/22/16 10:31 99 11/22/16 10:26 100 11/22/16 10:21 100 11/22/16 10:16 100 11/22/16 10:11 100 11/22/16 10:10 11/22/16 10:06 100 11/22/16 10:01 100 11/22/16 09:57 11/22/16 09:56 100 11/22/16 09:51 100 11/22/16 09:46 100 11/22/16 09:41 100 11/22/16 09:40 11/22/16 09:36 100 11/22/16 09:31 100 11/22/16 09:30 98 11/22/16 09:26 100 11/22/16 09:21 100 11/22/16 09:16 100 11/22/16 09:11 100 11/22/16 09:06 100 11/22/16 09:01 100 11/22/16 08:56 100 11/22/16 08:55 11/22/16 08:51 100 11/22/16 08:46 100 11/22/16 08:41 100 11/22/16 08:36 100 11/22/16 08:31 100 11/22/16 08:26 100 11/22/16 08:25 Intake and Output 11/22/16 11/23/16 11/23/16 22:59 06:59 14:59 Intake Total 1140 290 Output Total 2100 1600 Balance -960 -1310 Intake: IV 900 50 ANCEF/NS 1 GM/50 ML 1 gm 50 In 50 ml @ 100 mls/hr IV Q8H [facility] Rx#:[id number] Oral 240 240 Output: Urine 2100 1600 Indwelling Catheter 2100 1400 Void 200 Other: Total, Intake Amount 120 120 Total, Output Amount 1200 200 # Voids Void 1 Estimated Blood Loss 500 - Exam Breasts: Present: deferred Cardiovascular: Present: Regular rate Lungs: Present: Clear to auscultation Abdomen: Present: normal appearance, soft Uterus: Present: normal, firm, fundal height below umbilicus Extremities: Present: normal Incision: Present: normal, dry, intact, dressed - Labs Labs: Laboratory Tests 11/21/16 11/21/16 11/23/16 02:00 02:00 02:42 WBC 6.0 RBC 3.85 Hgb 12.3 10.4 Hct 35.8 31.5 MCV 93 MCH 32 MCHC 34 RDW 13.7 Plt Count 190 Lymph % (Auto) 33.4 [place] % (Auto) 6.7 Eos % (Auto) 1.4 Baso % (Auto) 0.6 Lymph # 2.0 [place] # 0.4 Eos # 0.1 Baso # 0.0 Seg Neutrophils % 57.9 Seg Neutrophils # 3.4 Blood Type O POSITIVE Antibody Screen Negative
[2016-11-23] MEDS: FEOSOL PO SCH (10:20)
[2016-11-23] MEDS: PRENATAL VITAMIN PO SCH (10:20)
--- NOTE | 2016-11-23 10:54 | Progress Note ---
Subjective Date of service: 11/23/16 Principal diagnosis: s/p Repeat C Section - POD #1 Interval history: No anesthetic related complaints. Overnight pain control was good. Objective - Constitutional Vitals: Vital Signs - 12hr 11/23/16 11/23/16 11/23/16 01:25 02:07 05:00 Temperature 98.8 F 98.7 F Pulse Rate [ 75 77 From Monitor] Pulse Rate [ Right Radial] Respiratory 20 18 20 Rate Blood Pressure 104/71 96/52 [Right Arm] 11/23/16 08:06 Temperature 98.5 F Pulse Rate [ From Monitor] Pulse Rate [ 84 Right Radial] Respiratory 20 Rate Blood Pressure 94/60 [Right Arm] - Labs CBC & Chem 7: 11/23/16 02:42
[2016-11-23] MEDS ORDERED: M-M-R II VACCINE SUB-Q ONE (14:44)
[2016-11-23] MEDS: MOTRIN PO PRN (17:27)
[2016-11-24] MEDS: FEOSOL PO SCH (10:17)
[2016-11-24] MEDS: PRENATAL VITAMIN PO SCH (10:18)
--- NOTE | 2016-11-24 10:38 | Progress Note ---
Assessment and Plan - Patient Problems (1) 39 weeks gestation of Onset Date: 11/22/16 Current Visit: Yes Status: Resolved (2) Desires (vaginal after ) trial Onset Date: 11/22/16 Current Visit: Yes Status: Resolved (3) Previous delivery affecting Onset Date: 11/22/16 Current Visit: Yes Status: Resolved (4) Status post repeat low transverse section Onset Date: 11/23/16 Current Visit: Yes Status: Resolved Plan to address problem: A: S/P Repeat LTCS - POD #2 Doing well P: May go home today Subjective - Subjective Date of service: 11/24/16 Principal diagnosis: s/p Repeat C Section - POD #2 Interval history: Pt is feeling well without complaints, tolerating a reg diet without nausea or vomiting. Bleeding improved. Ambulating and voiding without difficulty. Patient reports: appetite normal, voiding normally, pain well controlled, flatus , ambulating normally : doing well, nursing well Objective - Vital Signs Latest vital signs: Vital Signs Temp Pulse Resp BP 11/24/16 08:16 98.1 F 74 18 99/60 11/24/16 00:00 98.6 F 78 20 106/53 11/23/16 16:50 97.7 F 88 20 100/50 11/23/16 11:45 97.7 F 84 20 92/58 Intake and Output 11/23/16 11/24/16 11/24/16 22:59 06:59 14:59 Intake Total 480 120 360 Balance 480 120 360 Intake: Oral 480 120 360 Other: Total, Intake Amount 240 120 # Voids Void 1 1 - Exam Breasts: Present: deferred Cardiovascular: Present: Regular rate Lungs: Present: Clear to auscultation Abdomen: Present: normal appearance, soft Uterus: Present: normal, firm, fundal height below umbilicus Extremities: Present: normal Incision: Present: normal, dry, intact
--- NOTE | 2016-11-24 10:59 | Discharge Summary ---
Providers - Providers Date of Admission: 11/21/16 03:14 Date of discharge: 11/24/16 Attending physician: ILIANA BEASLEY Primary care physician: ILIANA BEASLEY Hospitalization Reason for admission: rupture of membranes, IUP at term Delivery: Procedure: section, repeat low transverse Episiotomy: none Incision: normal, dry, intact Other procedures: none complications: none Discharge diagnosis: IUP at term delivered [place] baby: male Hospital course: Pt is a 31 yo HF EGA 39 1/7 weeks who presented to L&D complaining of SROM followed by irregular contractions. She had a previous C Section but desired a TOLAC. She however developed a non-reassuring tracing and was therefore delivered by a repeat LTCS. Post operative course was uneventful, and by POD # 2 she was tolerating a reg diet without nausea or vomiting, ambulating and voiding without difficulty, and therefore discharged to home on POD #2 in stable condition. Condition at discharge: Good Disposition: DISCHARGED TO HOME OR SELFCARE - Discharge Diagnoses (1) 39 weeks gestation of Status: Resolved (2) Desires (vaginal after ) trial Status: Resolved (3) Previous delivery affecting Status: Resolved (4) Status post repeat low transverse section Status: Resolved Plan - Discharge Medications Prescriptions: Ferrous Sulfate [Feosol 325 MG tab] 325 mg PO BID #60 tablet HYDROcodone/APAP 5-325 [[place] 5/325] 1 each PO Q6HR PRN #30 tablet PRN Reason: Pain Ibuprofen [Motrin] 800 mg PO Q8HR PRN #30 tablet PRN Reason: Moder Pain Unrelieved By [place] Vit W-Ca,Fe,FA(<1 mg) [ Vitamins] 1 each PO DAILY #30 tablet - Provider Discharge Summary Activity: routine, no sex for 6 weeks, no heavy lifting 4 weeks, no strenuous exercise Diet: routine Instructions: routine Additional instructions: [] Smoking cessation referral if applicable(refer to patient education folder for contact #) [] Refer to [facility] Booklet Call your doctor immediately for: * Fever > 100.5 * Heavy vaginal bleeding ( >1 pad per hour) * Severe persistent headache * Shortness of breath * Reddened, hot, painful area to leg or breast * Drainage or odor from incision. * Keep incision clean and dry at all times and follow doctor's instructions regarding bathing/showering - Follow up plan Follow up: ILIANA BEASLEY MD [Primary Care Provider] - 14 Days
[2016-11-24] MEDS: MOTRIN PO PRN ×2 (12:16→18:07)
[2016-11-25 03:42] VITALS: BP 126/73
== END 2016-11-25 03:50 | disposition home or self-care (01) | DRG 765 ==
LOC: TRG 01:15 → LD 03:14 → TRG 03:14 → APU 11-22 14:14 → OB 11-22 16:25
PROVIDERS: ADMIT Obstetrics & Gynecology Gynecology; ATTEND Obstetrics & Gynecology Gynecology
PROC: 10D00Z1 Extraction of Products of Conception, Low, Open Approach (ICD-10-PCS; principal; 2016-11-22)
DX: O76 Abnormality in fetal heart rate and rhythm complicating labor and delivery (principal); O45.93 Premature separation of placenta, unspecified, third trimester; O34.211 Maternal care for low transverse scar from previous cesarean delivery; Z3A.39 39 weeks gestation of pregnancy; Z37.0 Single live birth
CPT/HCPCS: 36415; 76815; 85014; 85018; 85025; 86850; 86900; 86901; 88307; J0290; J0690; J1885; J2175; J2270; J2590; J2765; J3010; J7120; J7121